=== PATIENT | female | born 1985 | race Caucasian/White ===

== ENCOUNTER 2016-12-03 11:22 | Inpatient (IN) | payer OTHER ==
[2016-12-05] MEDS ORDERED: CARBOPROST TROMETHAMINE 250 MCG/ML 1 ML AMP IM PRN (01:20)
[2016-12-05] MEDS ORDERED: TERBUTALINE 1 MG/ML VIAL SQ PRN (01:20)
[2016-12-05] MEDS ORDERED: METHYLERGONOVINE 0.2 MG/ML 1 ML AMP IM PRN (01:20)
[2016-12-05] MEDS ORDERED: LIDOCAINE 1% (PF) 10 MG/ML (30 ML SDV) SQ PRN (01:20)
[2016-12-05] MEDS ORDERED: OXYTOCIN 10 UNIT/ML 1 ML VIAL IM PRN (01:20)
[2016-12-05 01:27] VITALS: BMI 31.0
[2016-12-05] MEDS ORDERED: OXYTOCIN 20 UNITS/1000 ML NS 1,000 ML IV SCH (01:30)
[2016-12-05] MEDS ORDERED: LACTATED RINGERS 1,000 ML IV SCH (01:30)
[2016-12-05] MEDS ORDERED: BUPIVACAINE (PF) 0.25% 30 ML VIAL ONE ×2 (01:50→10:00)
[2016-12-05] MEDS ORDERED: SODIUM CHLORIDE 0.9% 100 ML BAG ONE ×3 (01:50→10:00)
[2016-12-05] MEDS ORDERED: fentaNYL (PF) 50 MCG/ML 5 ML AMP ONE ×2 (01:50→10:00)
[2016-12-05 01:54] LABS: Basophils % (A) 0 %; CH 31.6; CHCM 33.3; Eosinophils # (A) 0.1 k/uL (0-0.7); Eosinophils % (A) 1 %; HCT 36.5 % (34.0-46.0); HDW 2.72; HGB 12.2 gm/dL (11.4-16.0); Luc # (Auto) 0.22; Luc % (Auto) 2; Lymphocytes # (A) 1.5 k/uL (1.0-4.8); Lymphocytes % (A) 14 %; MCH 31.8 pg (25.0-35.0); MCHC 33.3 g/dL (31.0-37.0); MCV 95.6 fL (80.0-100.0); Mean Platelet Volume 8.7; Monocytes # (A) 0.6 k/uL (0-1.0); Monocytes % (A) 6 %; Neutrophils # (A) 8.1 k/uL (1.3-7.7); Neutrophils % (A) 77 %; RBC 3.82 m/uL (3.80-5.40); RDW 13.6 % (11.5-15.5); WBC 10.6 k/uL (3.8-10.6); WBC (Perox) 11.01
[2016-12-05] MEDS: LACTATED RINGERS 1,000 ML IV SCH ×4 (04:13→18:59)
--- NOTE | 2016-12-05 08:28 | P.HPOB ---
History of Present Illness H&P Date: 12/05/16 Chief Complaint: Strong uterine contractions This is a 30-year-old white female 3 para 1011 EDC 12/03/2016 at 40-2/7 weeks' gestation. Patient was initially scheduled for induction today for postdates . She presented through the night with strong regular uterine contractions. Fetus is been active throughout the . She denies vaginal bleeding or fluid leakage. Past medical history is essentially unremarkable. Past surgical history oral surgery in the past. Current medications vitamins daily. ALLERGIES NO KNOWN DRUG ALLERGIES. 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 She has never been a smoker, she denies alcohol or drug use. history is significant for group B strep cultures negative. Rubella status immune. Blood type B-, antibody screen negative. VDRL testing, urine culture, hepatitis B surface antigen, HIV testing, gonorrhea and chlamydia cultures all negative. One-hour Glucola 105. On exam this is a pleasant white female, she is 5 foot 4 inches, 181 pounds, initial blood pressure 143/80, pulse 101, patient is afebrile. The general physical exam is within normal limits. The chest is clear in all scott. Extremities reveal no edema. Cervix at this time is completely dilated, 0 station, artificial amniorrhexis reveals light meconium-stained fluid. heart rate is in the 140s with frequent accelerations, reassuring and consistent with reactive NST. Impression: 40-2/7 weeks intrauterine , meconium-stained fluid, active labor. All signs reassuring. Plan: Oxytocin augmentation will be given at this time. Epidural has been discontinued. Continue close maternal and surveillance. Anticipate normal spontaneous vaginal delivery. Review of Systems Negative except as in HPI. Past Medical History Past Medical History: No Reported History Additional Past Medical History / Comment(s): Obstetric History: Patient has had one spontaneous . This is her second . She's had good care with Dr. Antunez since 5 weeks gestation. Her blood type is B-, rubella immune, hepatitis B negative, RPR nonreactive, normal anatomy ultrasound at 19 weeks, normal 1 hour glucose tolerance test. RhoGAM was given on 06/11/2013. GBS negative. History of Any Multi-Drug Resistant Organisms: None Reported Past Surgical History: No Surgical Hx Reported Additional Past Surgical History / Comment(s): wisdom teeth removed Past Anesthesia/Blood Transfusion Reactions: No Reported Reaction Past Psychological History: No Psychological Hx Reported Smoking Status: Never smoker Past Alcohol Use History: None Reported Past Drug Use History: None Reported - Past Family History Mother Family Medical History: No Reported History Additional Family Medical History / Comment(s): grandmother has heart disease Medications and Allergies Home Medications Medication Instructions Recorded Confirmed Type Rfd-Azzz-Wzjkv Acid 1 tab PO DAILY 09/10/13 12/05/16 History [-U Capsule (formulary)] Allergies Allergy/AdvReac Type Severity Reaction Status Date / Time No Known Allergies Allergy Verified 09/10/13 16:52 Exam - Vital Signs Vital signs: Vital Signs Temp Pulse Resp BP Pulse Ox 12/05/16 01:19 98 F 101 H 16 143/80 99 Intake and Output 12/04/16 12/05/16 12/05/16 22:59 06:59 14:59 Intake Total 1000 Balance 1000 Intake: IV 1000 Lactated Ringers 1,000 ml 1000 @ 125 mls/hr IV .Q8H BRANDON Rx#:[id number] Other: Weight 82.1 kg See dictation under HPI, please. Results Result Diagrams: 12/05/16 01:20 Abnormal Lab Results - Last 24 Hours (Table) 12/05/16 Range/Units 01:20 Neutrophils # 8.1 H (1.3-7.7) k/uL Assessment and Plan Plan: 40-2/7 weeks intrauterine , spontaneous active labor, meconium-stained fluid. Close maternal and surveillance. Anticipate normal spontaneous vaginal delivery. Time with Patient: Less than 30
[2016-12-05] MEDS ORDERED: CITRIC ACID-SODIUM CITRATE 15 ML CUP PO ONE (09:50)
[2016-12-05] MEDS ORDERED: METHYLERGONOVINE 0.2 MG/ML 1 ML AMP ONE (10:00)
[2016-12-05] MEDS ORDERED: OXYTOCIN 10 UNIT/ML 1 ML VIAL ONE (10:00)
[2016-12-05] MEDS ORDERED: ONDANSETRON 4 MG/2 ML VIAL ONE (10:00)
[2016-12-05] MEDS ORDERED: ceFAZolin 1,000 MG VIAL ONE (10:00)
[2016-12-05] MEDS ORDERED: ACETAMINOPHEN TAB 325 MG TAB PO PRN (10:57)
[2016-12-05] MEDS ORDERED: diphenhydrAMINE 50 MG/ML 1 ML VIAL IVP PRN ×2 (10:57)
[2016-12-05] MEDS ORDERED: KETOROLAC 30 MG/ML 1 ML VIAL IVP PRN (10:57)
[2016-12-05] MEDS ORDERED: diphenhydrAMINE 25 MG CAP PO PRN (10:57)
[2016-12-05] MEDS ORDERED: Acetaminophen-Codeine 300-30mg TAB PO PRN (10:57)
[2016-12-05] MEDS ORDERED: ZOLPIDEM 5 MG TAB PO PRN (10:57)
[2016-12-05] MEDS ORDERED: diphenhydrAMINE 50 MG CAP PO PRN (10:57)
[2016-12-05] MEDS ORDERED: ONDANSETRON 4 MG/2 ML VIAL IVP PRN (10:57)
[2016-12-05] MEDS ORDERED: NALOXONE 0.4 MG/ML 1 ML VIAL IV PRN (10:57)
[2016-12-05] MEDS ORDERED: METOCLOPRAMIDE 5 MG/ML 2 ML VIAL IVP PRN (10:57)
--- NOTE | 2016-12-05 10:57 | P.OP ---
Date of Procedure: 12/05/16 Preoperative Diagnosis: 40-2/7 weeks' gestation, meconium fluid, arrest of descent in the second stage Postoperative Diagnosis: Left occiput transverse position, nuchal cord 1. Procedure(s) Performed: Primary low transverse section Anesthesia: epidural Surgeon: Zaira Cabrera Toolmaker Grade Three #1: Sandra Frank Estimated Blood Loss (ml): 600 IV fluids (ml): 500 Urine output (ml): 50 Pathology: other (Placenta) Condition: stable Disposition: PACU Description of Procedure: Patient was admitted in active labor. Artificial amniorrhexis revealed meconium -stained fluid. She was 40-2/7 weeks' gestation with an EDC of 12/03/2016. Patient had an epidural placed per her request. In the second stage of labor no descent was noted. Oxytocin was started and titrated. Patient continued to push for approximately 2 hours and 15 minutes. Despite her excellent efforts and the discontinuation of the epidural, no station was noted past 0 station. A large amount of Was noted, and my suspicion was that of asynclitism. Decision was made to proceed with primary low transverse section. Heart tones were reassuring throughout the first and second stages of labor. Patient is brought back to the operating suite and the epidural was topped off. Abdomen was prepped and draped in usual sterile fashion. 2 g of Ancef were given prophylactically. Analgesia was checked and noted to be adequate. Only catheter placed to direct drainage. Vaginal prep was also performed prior to entering the operating room. The appropriate timeout is now performed to assure proper patient and procedural identification. A low transverse skin incision is made and carried down through the thin subcutaneous tissue. Fascia is isolated, scored and extended bilaterally with curved Herr scissors. Peritoneum is next identified and incised, there is no bowel or bladder involvement. Bladder flap is created using Metzenbaum scissors and at all times the bladder is Well from the operative field to avoid bladder and/or ureteral injury. It is noted to be quite low. It is pushed up through the lower uterine segment. A low transverse uterine incision is made and extended bluntly. 's head is delivered in left occiput transverse position. There is a large amount of Noted. There was a nuchal cord 1 that is reduced. The oropharynx, nasopharynx and external nares are bulb suctioned on the abdomen. Patient is officially delivered of a liveborn male at 1015 hrs. Umbilical cord was doubly clamped and ligated, he is handed to waiting nurses for evaluation is performed, scores of 9 and 9 at one and 5 minutes respectively are signed. Cord blood is sent to the lab for Rh- status. A section of cord is then held. The placenta is delivered manually, it is inspected and noted to be meconium-stained but otherwise intact at 1016 hrs. Uterus is then externalized and Pitocin is given. The uterus is somewhat boggy , and therefore Methergine is given as well. It is massaged. It is wiped clean with a sterile sponge to avoid any retained products of conception. The edges are grasped with Gonzalez clamps and the uterus is closed in a two-step fashion. First layer is running locking with 0 Vicryl, second layer is imbricated. Bilateral tubes and ovaries are inspected and noted to be normal. The abdomen is suctioned with suction on guard. The uterus is gently placed back into the abdomen. Bilateral gutters are inspected and cleaned. Uterine incision is clean and dry. Peritoneum was allowed to close by secondary intention. Fascia is closed in a running stitch of 0 Vicryl with over ligation in the midline. Subcutaneous tissue was generously irrigated, noted to be clean and dry. It is reapproximated using 3-0 Vicryl in a running stitch. 4-0 Monocryl sutures used in a subcuticular fashion for final closure of the skin. Mastisol and Steri-Strips are applied. Ma is noted to be draining concentrated but otherwise clear urine. All sponge needle and enhancement counts are correct at the end of the procedure. Patient is brought back to the recovery room in very good condition with stable vital signs. She is requesting circumcision for her infant son.
[2016-12-05] MEDS: HYDROmorphone PCA 5 MG/25 ML SYRINGE IV PRN ×2 (11:24→20:47)
[2016-12-05] MEDS ORDERED: Rhogam IMMUNE GLOBULIN 1,500 UNIT/1 ML IM ONE (16:54)
[2016-12-05] MEDS: SENNOSIDES-DOCUSATE SODIUM 1 EACH TAB PO SCH (19:23)
[2016-12-06] MEDS: HYDROmorphone PCA 5 MG/25 ML SYRINGE IV PRN (05:02)
[2016-12-06 07:07] LABS: Basophils % (A) 0 %; CH 31.6; CHCM 32.3; Eosinophils # (A) 0.1 k/uL (0-0.7); Eosinophils % (A) 1 %; HCT 28.8 % (34.0-46.0); HDW 2.63; Luc # (Auto) 0.14; Luc % (Auto) 1; Lymphocytes # (A) 1.3 k/uL (1.0-4.8); Lymphocytes % (A) 11 %; MCH 32.2 pg (25.0-35.0); MCHC 32.8 g/dL (31.0-37.0); MCV 98.3 fL (80.0-100.0); Mean Platelet Volume 8.3; Monocytes # (A) 0.6 k/uL (0-1.0); Monocytes % (A) 5 %; Neutrophils # (A) 9.8 k/uL (1.3-7.7); Neutrophils % (A) 83 %; RBC 2.93 m/uL (3.80-5.40); RDW 13.6 % (11.5-15.5); WBC 11.8 k/uL (3.8-10.6); WBC (Perox) 12.43
[2016-12-06 07:10] LABS: HGB 9.4 gm/dL (11.4-16.0)
--- NOTE | 2016-12-06 08:17 | P.PN ---
Subjective Principal diagnosis: Postoperative day #1 Slept well. Positive flatus. Pain well controlled. Moderate lochia rubra. Objective - Vital Signs Vital signs: Vital Signs Temp 98.1 F 12/06/16 04:00 Pulse 81 12/06/16 04:00 Resp 18 12/06/16 04:00 BP 99/59 12/06/16 04:00 Pulse Ox 100 12/06/16 04:00 Intake & Output 12/05/16 12/06/16 12/06/16 18:59 06:59 18:59 Intake Total 506.55 1100 Output Total 800 2000 Balance -293.45 -900 Intake: IV 500 Lactated Ringers 1,000 ml 500 @ 125 mls/hr IV .Q8H BRANDON Rx#:[id number] Intake, IV Titration 506.55 Amount Oxytocin 20 Units/1000 ml 506.55 Ns 1,000 ml @ 1 MILLIUNIT/MIN 3 mls/hr IV .Q24H BRANDON Rx#:[id number] Oral 600 Output: Urine 200 2000 Uretheral (Ma) 1300 Estimated Blood Loss 600 Other: Voiding Method Indwelling Catheter - Constitutional General appearance: Present: average body habitus, cooperative - EENT Eyes: Present: PERRLA ENT: Present: hearing grossly normal - Neck Neck: Present: normal ROM - Respiratory Respiratory: bilateral: CTA - Cardiovascular Rhythm: regular - Gastrointestinal General gastrointestinal: Present: normal bowel sounds - Genitourinary Genitourinary Comment(s): Incision clean and dry, well approximated. Fundus firm, midline, symmetric, 18 week size. - Integumentary Integumentary: Present: normal - Neurologic Neurologic: Present: CNII-XII intact - Musculoskeletal Musculoskeletal: Present: gait normal, strength equal bilaterally - Psychiatric Psychiatric: Present: A&O x's 3, appropriate affect, intact judgment & insight - Labs CBC & Chem 7: 12/06/16 05:56 Labs: Abnormal Lab Results - Last 24 Hours (Table) 12/06/16 Range/Units 05:56 WBC 11.8 H (3.8-10.6) k/uL RBC 2.93 L (3.80-5.40) m/uL Hgb 9.4 L D (11.4-16.0) gm/dL Hct 28.8 L (34.0-46.0) % Neutrophils # 9.8 H (1.3-7.7) k/uL Assessment and Plan Plan: Continue care. Circumcision done this morning. Likely discharge home tomorrow. Time with Patient: Less than 30
[2016-12-06] MEDS: SENNOSIDES-DOCUSATE SODIUM 1 EACH TAB PO SCH ×2 (08:57→19:20)
[2016-12-06] MEDS: IBUPROFEN 600 MG TAB PO PRN ×2 (10:21→19:19)
[2016-12-07] MEDS: IBUPROFEN 600 MG TAB PO PRN ×2 (01:43→08:13)
[2016-12-07] MEDS: LACTATED RINGERS 1,000 ML IV SCH (01:55)
--- NOTE | 2016-12-07 08:07 | P.DS ---
Providers Date of admission: 12/05/16 01:06 Expected date of discharge: 12/07/16 Attending physician: Zaira Cabrera Primary care physician: Stated None Hospital Course: This is a 30-year-old female 3 para 1011 who presented at 40-2/7 weeks' gestation in active labor. was essentially unremarkable, group B strep cultures negative, blood type B negative, rubella status immune. Please see my history and physical for details. Patient progressed through labor and became completely dilated and pushed for over 2 hours. However there was no descent of the head past 0 station. Decision was made to proceed with primary low transverse section. She underwent a low-transverse section and gave to a liveborn male with scores of 9 and 9 at one and 5 minutes respectively. Infant weighed 4220 g or 9 lbs. 5 oz. He was noted to be in a deep transverse arrest with a nuchal cord 1. Please see my dictated operative note for details. Estimated blood loss 600 mL's. Postoperatively the patient has done very well. This morning she is voiding, ambulating and passing flatus without difficulty. Vital signs are stable and she is afebrile. Fundus is firm and in the midline, symmetric and 18 week size. Extremities are negative for edema. Incision is clean and dry, intact, Steri-Strips applied. There is minimal to moderate lochia rubra. Pain is well- controlled with ibuprofen. Circumcision has been performed in the has been discharged per Dr. Gonzalez. Patient is being discharged home today in very good condition. She will follow- up with me in the office in 6 weeks. I have reminded her no intercourse, tampons or douching. We have discussed options for contraception and she will discuss this further with her . They are contemplating vasectomy. She will use ibuprofen [id number] as needed for pain, 200 mg pills, 3 every 6 hours when necessary. I've asked her to call me with any fevers shakes or chills, foul smelling or copious lochia, with the passage of large blood clots, with any pain not alleviated by ibuprofen, or indeed with any concerns. Patient Condition at Discharge: Good Plan - Discharge Summary New Discharge Prescriptions: No Action Xyz-Bzvr-Whzij Acid [-U Capsule (formulary)] 1 tab PO DAILY Discharge Medication List Wxk-Ooey-Jekij Acid [-U Capsule (formulary)] 1 tab PO DAILY 03/26 [History] Follow up Appointment(s)/Referral(s): Zaira Cabrera MD [STAFF PHYSICIAN] - 2 Weeks Discharge Disposition: HOME SELF-CARE
[2016-12-07] MEDS: SENNOSIDES-DOCUSATE SODIUM 1 EACH TAB PO SCH (08:13)
[2016-12-07 08:26] VITALS: BP 121/66; PULSE 99; RESP 18; TEMP 98.5
== END 2016-12-07 10:06 | disposition home or self-care (01) | DRG 766 ==
LOC: 4FBP 12-05 01:06
PROVIDERS: ADMIT Obstetrics & Gynecology; ATTEND Obstetrics & Gynecology
PROC: 00HU33Z Insertion of Infusion Device into Spinal Canal, Percutaneous Approach (ICD-10-PCS; 2016-12-05)
PROC: 3E0R3CZ (ICD-10-PCS; 2016-12-05)
PROC: 10D00Z1 Extraction of Products of Conception, Low, Open Approach (ICD-10-PCS; principal; 2016-12-05 10:08)
DX: O69.81X0 Labor and delivery complicated by cord around neck, without compression, not applicable or unspecified (principal); O64.0XX0 Obstructed labor due to incomplete rotation of fetal head, not applicable or unspecified; O77.0 Labor and delivery complicated by meconium in amniotic fluid; Z37.0 Single live birth; Z3A.40 40 weeks gestation of pregnancy
CPT/HCPCS: 59025; 85025; 85461; 88307; 99213